=== PATIENT | male | born 1980 | race Caucasian/White ===

== ENCOUNTER 2018-08-27 11:30 | Outpatient (RCR) | payer BC ==
[2018-08-27 13:05] LABS: SEMEN VOLUME 5.8 ML (1.5-5.0)
== END 2018-11-25 | disposition home or self-care (01) ==
LOC: LAB 11:30
PROVIDERS: ATTEND Nurse Practitioner
DX: Z31.41 Encounter for fertility testing (principal)
CPT/HCPCS: 89320

== ENCOUNTER 2022-06-02 08:13 | Emergency (ER) | payer BC ==
[~2022-06-02] VITALS: Ht 177.8 cm; Wt 86.1 kg
[2022-06-02] MEDS ORDERED: ONDANSETRON 4 MG/2 ML (SDV) Z0FRAN ONE (08:26)
[2022-06-02] MEDS ORDERED: morphine INJ 10 MG/ML 1ML (SYR OR VIAL) IVP STA (08:26)
[2022-06-02] MEDS ORDERED: ONDANSETRON 4 MG/2 ML (SDV) Z0FRAN IVP ONE (08:30)
[2022-06-02] MEDS ORDERED: NS IV 1000 ML 1,000 ML IV SCH ×2 (08:30→10:30)
[2022-06-02 08:38] LABS: BASOPHILS # (AUTO) 0.1 10^3/uL (0.0-0.1); BASOPHILS % (AUTO) 1 % (0-10); EOSINOPHILS # (AUTO) 0.7 10^3/uL (0.0-0.3); EOSINOPHILS % (AUTO) 7 % (0-10); HEMATOCRIT 42 % (40-54); HEMOGLOBIN 15.1 g/dL (13.3-17.7); LYMPHOCYTES # (AUTO) 3.3 10^3/uL (1.0-4.0); LYMPHOCYTES % (AUTO) 34 % (12-44); MEAN CORPUSCULAR HEMOGLOBIN 31 pg (25-34); MEAN CORPUSCULAR HGB CONC 36 g/dL (32-36); MEAN CORPUSCULAR VOLUME 86 fL (80-99); MEAN PLATELET VOLUME 10.9 fL (9.0-12.2); MONOCYTES # (AUTO) 0.6 10^3/uL (0.0-1.0); MONOCYTES % (AUTO) 6 % (0-12); NEUTROPHILS # (AUTO) 5.1 10^3/uL (1.8-7.8); NEUTROPHILS % (AUTO) 52 % (42-75); PLATELET COUNT 293 10^3/uL (130-400); WHITE BLOOD COUNT 9.7 10^3/uL (4.3-11.0)
--- NOTE | 2022-06-02 08:44 | ED Abdominal Pain ---
General Chief Complaint: - Reproductive Stated Complaint: RIGHT SIDE ABD/TESTICLE Source of Information: Patient Exam Limitations: No Limitations History of Present Illness Date Seen by Provider: Jun 02, 2022 Time Seen by Provider: 08:28 Initial Comments Patient is a 42yo male who presents to the ER with a complaint of right sided a bdominal pain radiating into the groin. Onset early this morning. on arrival N/V. no issues with urination - hematuria or dysuria. Last bowel movement was yesterday and normal - nonblack nonbloody. Hes never had pain like this before. No prior abdominal surgeries. no history of kidney stone. He does have testicle pain - no trauma. He has take ibuprofen without relief. No fevers, chills or URI sx. No Covid concerns. Nothing makes the pain any better or worse. He did have a little blood in his urine 2 weeks ago but no pain. All other ROS reviwewd and negative except as stated. Timing/Duration: 1-3 Hours Severity/Quality: Severe Location: Flank Radiation: No Radiation, Groin Activities at Onset: Other (dove hunting this morning) Associated Symptoms: Nausea/Vomiting Allergies and Home Medications Allergies Coded Allergies: codeine (Verified Allergy, Unknown, 06/02/22) Patient Home Medication List Home Medication List Reviewed: Yes Ondansetron (Ondansetron Odt) 4 Mg Tab.rapdis, 4 MG PO Q8H PRN for nausea Prescribed by: MARTINE KIM on 06/02/22 1121 Oxycodone HCl/Acetaminophen (Percocet 7.5-325 mg Tablet) 1 Each Tablet, 1 TAB PO Q6H PRN for PAIN-MODERATE Prescribed by: MARTINE KIM on 06/02/22 112 Tamsulosin HCl (Flomax) 0.4 Mg Cap, 0.4 MG PO DAILY Prescribed by: MARTINE KIM on 06/02/22 1121 Review of Systems Review of Systems Constitutional: see HPI EENTM: No Symptoms Reported Respiratory: No Symptoms Reported Cardiovascular: No Symptoms Reported Gastrointestinal: Abdominal Pain Genitourinary: Other (groin pain) Musculoskeletal: no symptoms reported Skin: no symptoms reported All Other Systems Reviewed Negative Unless Noted: Yes Past Rhndpyg-Oeachj-Bvaaxn Hx Past Medical History Reproductive Disorders: No Physical Exam Vital Signs Vital Signs - First Documented 06/02/22 08:28 Temp 35.2 Pulse 71 Resp 18 B/P (MAP) 118/82 (94) Pulse Ox 100 O2 Delivery Room Air Capillary Refill : Height/Weight/BMI Height: '" Weight: lbs. oz. kg; BMI Method: General Appearance: WD/WN, mild distress Neck: normal inspection Respiratory: lungs clear, normal breath sounds, no respiratory distress, no accessory muscle use Cardiovascular: regular rate, rhythm Gastrointestinal: soft, tenderness (mild RLQ without rebound; no involuntary guarding) Genital/Rectal: normal genital exam, other (no testicular tenderness or swelling; ) Extremities: normal range of motion, normal inspection Back: CVA tenderness (R) (mild) Male: normal genitalia Neurologic/Psychiatric: alert, normal mood/affect, oriented x 3 Skin: normal color, diaphoresis Progress/Results/Core Measures Results/Orders Lab Results Laboratory Tests Test 06/02/22 08:28 06/02/22 10:20 Range/Units White Blood Count 9.7 4.3-11.0 10^3/uL Red Blood Count 4.85 4.30-5.52 10^6/uL Hemoglobin 15.1 13.3-17.7 g/dL Hematocrit 42 40-54 % Mean Corpuscular Volume 86 80-99 fL Mean Corpuscular Hemoglobin 31 25-34 pg Mean Corpuscular Hemoglobin Concent 36 32-36 g/dL Red Cell Distribution Width 11.8 10.0-14.5 % Platelet Count 293 130-400 10^3/uL Mean Platelet Volume 10.9 9.0-12.2 fL Immature Granulocyte % (Auto) 0 % Neutrophils (%) (Auto) 52 42-75 % Lymphocytes (%) (Auto) 34 12-44 % Monocytes (%) (Auto) 6 0-12 % Eosinophils (%) (Auto) 7 0-10 % Basophils (%) (Auto) 1 0-10 % Neutrophils # (Auto) 5.1 1.8-7.8 10^3/uL Lymphocytes # (Auto) 3.3 1.0-4.0 10^3/uL Monocytes # (Auto) 0.6 0.0-1.0 10^3/uL Eosinophils # (Auto) 0.7 H 0.0-0.3 10^3/uL Basophils # (Auto) 0.1 0.0-0.1 10^3/uL Immature Granulocyte # (Auto) 0.0 0.0-0.1 10^3/uL Sodium Level 141 135-145 MMOL/L Potassium Level 3.3 L 3.6-5.0 MMOL/L Chloride Level 105 98-107 MMOL/L Carbon Dioxide Level 19 L 21-32 MMOL/L Anion Gap 17 H 5-14 MMOL/L Blood Urea Nitrogen 15 7-18 MG/DL Creatinine 1.53 H 0.60-1.30 MG/DL Estimat Glomerular Filtration Rate 58 BUN/Creatinine Ratio 10 Glucose Level 160 H 70-105 MG/DL Calcium Level 9.8 8.5-10.1 MG/DL Urine Color YELLOW Urine Clarity SL CLOUDY Urine pH 6.0 5-9 Urine Specific Stitzer 1.025 H 1.016-1.022 Urine Protein 2+ H NEGATIVE Urine Glucose (UA) NEGATIVE NEGATIVE Urine Ketones 1+ H NEGATIVE Urine Nitrite NEGATIVE NEGATIVE Urine Bilirubin NEGATIVE NEGATIVE Urine Urobilinogen 0.2 < = 1.0 MG/DL Urine Leukocyte Esterase NEGATIVE NEGATIVE Urine RBC (Auto) 3+ H NEGATIVE Urine RBC 50-100 H /HPF Urine WBC NONE /HPF Urine Squamous Epithelial Cells NONE /HPF Urine Crystals NONE /LPF Urine Bacteria NEGATIVE /HPF Urine Casts NONE /LPF Urine Mucus NEGATIVE /LPF Urine Culture Indicated NO My Orders Orders - MARTINE KIM MD Ed Iv/Invasive Line Start (06/02/22 08:26) Cbc With Automated Diff (06/02/22 08:26) Basic Metabolic Panel (06/02/22 08:26) Ua Culture If Indicated (06/02/22 08:26) Ns Iv 1000 Ml (Sodium Chloride 0.9%) (06/02/22 08:30) Ondansetron Injection (Zofran Injectio (06/02/22 08:30) Morphine Injection (Morphine Injection (06/02/22 08:26) Ondansetron Injection (Zofran Injectio (06/02/22 08:26) Abdomen/Kub 1view (06/02/22 08:41) Ct Abd/Pelvis Wo(Kidney Stone) (06/02/22 08:41) Ketorolac Injection (Toradol Injection) (06/02/22 08:45) Ns Iv 1000 Ml (Sodium Chloride 0.9%) (06/02/22 10:30) Ns Iv 1000 Ml (Sodium Chloride 0.9%) (06/02/22 10:23) Oxycodone/Apap 7.5/325mg Tab (Percocet (06/02/22 11:30) Medications Given in ED Vital Signs/I&O 06/02/22 06/02/22 08:28 12:00 Temp 35.2 Pulse 71 69 Resp 18 18 B/P (MAP) 118/82 (94) 117/77 Pulse Ox 100 95 O2 Delivery Room Air Room Air Progress Progress Note : Time: 11:17 Progress Note still pain controlled. No nausea. pain occasionally comes in short "bursts". VSS. 8mm stone mid right ureter. Mild hydronephrosis. Recc flomax, pain meds. No indication for antibiotics on UA. Follow up with Dr Morgan. Liam is comfortable with plan. All questions are sought and answered. Diagnostic Imaging Diagonstic Imaging: Xray Comments [facility] [place], [place] NAME: MARIA TERESA HERNANDEZ [facility] REC#: [id number] PT STATUS: REG ER : 1980 PHYSICIAN: MARITNE KIM MD ADMIT DATE: 06/02/22/ER Signed Date of Exam:06/02/22 ABDOMEN/KUB 1VIEW EXAMINATION: Abdomen 1 view HISTORY: Right flank pain COMPARISON: 06/02/2022 FINDINGS: There is a moderate amount of gas and stool throughout the colon. Nonobstructive bowel gas pattern. A 0.8 cm calculus within the mid right abdomen within the expected location of the right ureter. The lung bases are clear. The osseous structures are intact. IMPRESSION: A 0.8 cm likely right mid ureteral calculus. Dictated by: Dictated on workstation # [id number] Dict: 06/02/22930 Trans: 06/02/22951 [facility] [id number] Interpreted by: RAMSES CAMEJO DO Electronically signed by: RAMSES CAMEJO DO 06/02/2252 Diagonstic Imaging: CT Comments [facility] [place] [place] NAME: MARIA TERESA HERNANDEZ [facility] REC#: [id number] PT STATUS: REG ER : 1980 PHYSICIAN: MARTINE KIM MD ADMIT DATE: 06/02/22/ER Signed Date of Exam:06/02/22 CT ABD/PELVIS WO(KIDNEY STONE) EXAMINATION: CT abdomen and pelvis without contrast. TECHNIQUE: Multiple contiguous axial images were obtained through the abdomen and pelvis without the use of intravenous contrast. All CT scans use one or more of the following dose optimizing techniques: automated exposure control, MA and/or KvP adjustment based on patient size and exam type or iterative reconstruction. HISTORY: Right-sided flank pain COMPARISON: None available. FINDINGS: Lung bases: The lung bases are clear. Solid organs: The liver is normal. The gallbladder is normal. There is no biliary ductal dilation. Pancreas is normal. Spleen is normal. Adrenal glands are normal. There is mild right hydronephrosis. There is a 0.8 cm calculus within the mid right ureter. There is a left renal cyst which requires no follow-up. Bowel: The stomach and small bowel are normal without obstruction. The colon and appendix are normal. Peritoneum: There is no intraperitoneal free fluid or free air. No suspicious lymphadenopathy. Vasculature: Normal without aneurysm. Musculoskeletal: No suspicious osseous lesion or compression fracture. Pelvis: The prostate gland is normal. The urinary bladder is normal. IMPRESSION: 1. A 0.8 cm calculus within the mid right ureter resulting in mild right hydronephrosis. Dictated by: Dictated on workstation # [id number] Dict: 06/02/22928 Trans: 06/02/22951 [facility] [id number] Interpreted by: RAMSES CAMEJO DO Electronically signed by: RAMSES CAMEJO DO 06/02/22 0952 Departure Impression Primary Impression: Ureteral stone Disposition: 01 HOME, SELF-CARE Condition: Improved Departure-Patient Inst. Decision time for Depature: 11:19 Referrals: SHAKIRA GILLIAM MD (PCP/Family) Primary Care Physician FAB MORGAN MD Add. Discharge Instructions: drink plenty of fluids to stay well hydrated. Flomax 0.4mg every night to help increase urinary flow. Percocet, 1 tablet with an extra strength tylenol every 6 hours as needed for pain. Take a stool softener daily. Nausea medications every 8 hours as needed. Please call Dr Morgan's office Saturday morning for a follow up appointment this week. Come back to the Emergency Department for re-evaluation if you have pain not controlled by home pain meds or fever. Scripts Ondansetron (Ondansetron Odt) 4 Mg Tab.rapdis 4 MG PO Q8H PRN for nausea, #20 TAB Prov: MARTINE KIM MD 06/02/22 Tamsulosin HCl (Flomax) 0.4 Mg Cap 0.4 MG PO DAILY for 14 Days, #14 CAP Prov: MARTINE KIM MD 06/02/22 Oxycodone HCl/Acetaminophen (Percocet 7.5-325 mg Tablet) 1 Each Tablet 1 TAB PO Q6H PRN for PAIN-MODERATE MDD 4 TABS, #20 TAB Prov: MARTINE KIM MD 06/02/22 Copy Copies To 1: SHAKIRA GILLIAM MD Copies To 2: FAB MORGAN MD, KATHRYN M MD Jun 02, 2022 08:44
[2022-06-02] MEDS ORDERED: KETOROLAC 30 MG/ML VIAL IVP ONE (08:45)
[2022-06-02 08:57] LABS: POTASSIUM 3.3 MMOL/L (3.6-5.0)
[2022-06-02 08:58] LABS: CALCIUM 9.8 MG/DL (8.5-10.1)
[2022-06-02 09:02] LABS: CREATININE SERUM 1.53 MG/DL (0.60-1.30)
--- NOTE | 2022-06-02 09:33 | Diagnostic Imaging Report ---
EXAMINATION: CT abdomen and pelvis without contrast. TECHNIQUE: Multiple contiguous axial images were obtained through the abdomen and pelvis without the use of intravenous contrast. All CT scans use one or more of the following dose optimizing techniques: automated exposure control, MA and/or KvP adjustment based on patient size and exam type or iterative reconstruction. HISTORY: Right-sided flank pain COMPARISON: None available. FINDINGS: Lung bases: The lung bases are clear. Solid organs: The liver is normal. The gallbladder is normal. There is no biliary ductal dilation. Pancreas is normal. Spleen is normal. Adrenal glands are normal. There is mild right hydronephrosis. There is a 0.8 cm calculus within the mid right ureter. There is a left renal cyst which requires no follow-up. Bowel: The stomach and small bowel are normal without obstruction. The colon and appendix are normal. Peritoneum: There is no intraperitoneal free fluid or free air. No suspicious lymphadenopathy. Vasculature: Normal without aneurysm. Musculoskeletal: No suspicious osseous lesion or compression fracture. Pelvis: The prostate gland is normal. The urinary bladder is normal. IMPRESSION: 1. A 0.8 cm calculus within the mid right ureter resulting in mild right hydronephrosis. Dictated by: Dictated on workstation # [id number]
--- NOTE | 2022-06-02 09:33 | Diagnostic Imaging Report ---
EXAMINATION: Abdomen 1 view HISTORY: Right flank pain COMPARISON: 06/02/2022 FINDINGS: There is a moderate amount of gas and stool throughout the colon. Nonobstructive bowel gas pattern. A 0.8 cm calculus within the mid right abdomen within the expected location of the right ureter. The lung bases are clear. The osseous structures are intact. IMPRESSION: A 0.8 cm likely right mid ureteral calculus. Dictated by: Dictated on workstation # [id number]
[2022-06-02] MEDS ORDERED: NS IV 1000 ML 1,000 ML ONE (10:23)
[2022-06-02 10:49] LABS: BILIRUBIN,URINE NEGATIVE (NEGATIVE); CLARITY,URINE SL CLOUDY; COLOR,URINE YELLOW; GLUCOSE, URINE (UA) NEGATIVE (NEGATIVE); KETONES,URINE 1+ (NEGATIVE); LEUKOCYTE ESTERASE ,URINE NEGATIVE (NEGATIVE); NITRITE,URINE NEGATIVE (NEGATIVE); PROTEIN,URINE 2+ (NEGATIVE)
[2022-06-02 11:09] LABS: BACTERIA,URINE NEGATIVE /HPF; RBC,URINE 50-100 /HPF
[2022-06-02] MEDS ORDERED: ONDA4TAB11 PO (11:21)
[2022-06-02] MEDS ORDERED: OXYC1TAB16 PO (11:21)
[2022-06-02] MEDS ORDERED: TMSL.4C PO (11:21)
[2022-06-02] MEDS ORDERED: oxyCODONE/APAP 7.5-325 MG (PERCOCET 7.5) TABLET PO ONE (11:30)
[2022-06-02 12:00] VITALS: BP 117/77
== END 2022-06-02 12:05 | disposition home or self-care (01) ==
LOC: EDUNIT# 08:13 → ER 08:16
DX: N13.2 Hydronephrosis with renal and ureteral calculous obstruction (principal); Z88.5 Allergy status to narcotic agent
CPT/HCPCS: 36415; 74018; 74176; 80048; 81000; 85025

== ENCOUNTER → 2022-06-06 | Outpatient (CLI) | payer BC ==
[~2022-06-06] MED LIST: ONDA4TAB11 PO; OXYC1TAB16 PO; TMSL.4C PO
--- NOTE | 2022-06-06 16:35 | Diagnostic Imaging Report ---
EXAMINATION: Abdomen, one view. HISTORY: Right ureteral stone. COMPARISON: 06/02/2022. FINDINGS: There is a moderate amount of gas and stool throughout the colon. Nonobstructive bowel gas pattern. Stable 0.8 cm radiopacity overlying the right paraspinous abdomen likely within the right ureter. This projects over the L3 right transverse process which is slightly above where it was seen on 06/02/2022. The osseous structures are intact. IMPRESSION: A 0.8 cm likely right ureteral calculus which projects slightly higher than on the previous exam at the level of L3. Dictated by: Dictated on workstation # [id number]
== END ==
LOC: RAD 15:34
PROVIDERS: ATTEND Urology
DX: N20.1 Calculus of ureter (principal)
CPT/HCPCS: 74018

== ENCOUNTER 2022-06-11 05:28 | Outpatient (CLI) | payer BC ==
[2022-06-12] MEDS ORDERED: NITR-65 PO (09:00)
[2022-06-12] MEDS ORDERED: TMSL.4C PO (09:00)
[2022-06-12] MEDS ORDERED: KETO10TA PO (09:00)
== END 2022-06-18 09:18 | disposition home or self-care (01) ==
LOC: PREOP 05:28
PROVIDERS: ATTEND Urology
DX: Z01.818 Encounter for other preprocedural examination (principal)

== ENCOUNTER 2022-06-12 06:37 | Day surgery (SDC) | payer BC ==
[2022-06-12] VITALS (11 sets, daily range): BP systolic 108–133; BP diastolic 60–84
[~2022-06-12] VITALS: Ht 177.8 cm; Wt 86.2 kg
[2022-06-12] MEDS ORDERED: cefTRIAXone 1 GM PRE-MIX 50 ML IV ONE (07:00)
[2022-06-12] MEDS ORDERED: LIDOCAINE PF 2% 5 ML (XYLOCAINE) VIAL ONE (07:13)
[2022-06-12] MEDS ORDERED: proPOfol 200 MG/20 ML (DIPRIVAN) VIAL IV ONE (07:13)
[2022-06-12] MEDS ORDERED: fentaNYL INJ 100 MCG/2 ML AMP ONE (07:13)
[2022-06-12] MEDS ORDERED: ONDANSETRON 4 MG/2 ML (SDV) Z0FRAN ONE (07:13)
[2022-06-12] MEDS ORDERED: MIDAZOLAM 2 MG/2 ML (VERSED) VIAL ONE (07:13)
--- NOTE | 2022-06-12 07:23 | Progress Note-Pre Operative ---
Pre-Operative Progress Note Date of Available H&P: Jun 12, 2022 Date H&P Reviewed: Jun 12, 2022 Time H&P Reviewed: 07:23 Changes from last HP NONE Pre-Operative Diagnosis: RT PROXIMAL URETERAL STONE FAB MORGAN MD Jun 12, 2022 07:23
--- NOTE | 2022-06-12 07:23 | Diagnostic Imaging Report ---
EXAMINATION: Abdominal radiographs, single view, 2 images. DATE: June 12, 2022. CLINICAL INDICATION: 42-year-old male, preoperative exam. History of right-sided renal stone. COMPARISON: Abdominal radiograph June 06, 2022. COMMENTS: There is a 7 mm calcification at the level of the right L3 transverse process unchanged since the comparison radiograph which may potentially reflect a ureteral stone. There are pelvic calcifications which are unchanged. There are no abnormally distended gas-filled segments of bowel. IMPRESSION: 7 mm probable stone in the right ureter unchanged in position since June 06, 2022 at the level of the right L3 transverse process. Dictated by: Dictated on workstation # [id number]
[2022-06-12] MEDS: LACTATED RINGERS 1,000 ML IV PRN ×2 (07:26→08:55)
--- NOTE | 2022-06-12 07:27 | Progress Note-Post Operative ---
Post-Operative Progess Note Surgeon (s)/Wine Consultant (s) Surgeon FAB MORGAN MD Wine Consultant: NONE Pre-Operative Diagnosis RT PROXIMAL URETERAL STONE Post-Operative Diagnosis SAME Procedure & Operative Findings Date of Procedure 06/12/22 Procedure Performed/Findings CYSTOSCOPY WITH RT URETERAL STONE MANIPULATION AND STENT Anesthesia Type GENERAL Estimated Blood Loss Estimated blood loss (mL): NONE Specimens/Packing Specimens Removed NONE Packing: NONE FAB MORGAN MD Jun 12, 2022 07:27
--- NOTE | 2022-06-12 07:29 | Discharge Inst-Urology ---
Discharge Inst-Urology Reconcile Patient Problems Problems Reviewed?: Yes Final Diagnosis RT PROXIMAL URETERAL STONE Patient Instructions/Follow Up Plan/Assessment/Instructions Please make appointment to been seen in office next Saturday, KUB prior to it. KUB on way home Increase oral fluids for 48 hours and then as needed. Diet and Activity as tolerated. If questions or concerns contact your physician Or seek help at emergency department. FAB MORGAN MD Jun 12, 2022 07:28
[2022-06-12] MEDS ORDERED: NITR-65 PO (09:00)
[2022-06-12] MEDS ORDERED: PROMETHAZINE INJ 25 MG/ML (PHENERGAN) AMP IVP ONE (09:00)
[2022-06-12] MEDS ORDERED: ONDANSETRON 4 MG/2 ML (SDV) Z0FRAN IVP PRN (09:00)
[2022-06-12] MEDS ORDERED: morphine INJ 10 MG/ML 1ML (SYR OR VIAL) IVP ONE (09:00)
[2022-06-12] MEDS ORDERED: MEPERIDINE (DEMEROL) INJ 50 MG/ML IVP ONE (09:00)
[2022-06-12] MEDS ORDERED: TMSL.4C PO (09:00)
[2022-06-12] MEDS ORDERED: KETO10TA PO (09:00)
--- NOTE | 2022-06-12 09:00 | Anesthesia-General Post-Op ---
General Patient Condition Mental Status/LOC: Same as Preop Cardiovascular: Satisfactory Nausea/Vomiting: Absent Respiratory: Satisfactory Pain: Controlled Complications: Absent Post Op Complications Complications None Follow Up Care/Instructions Patient Instructions None needed. Anesthesia/Patient Condition Patient Condition Patient is doing well, no complaints, stable vital signs, no apparent adverse anesthesia problems. No complications reported per nursing. ASHTYN PASTRANA CRNA Jun 12, 2022 08:59
[2022-06-12] MEDS ORDERED: KETOROLAC 30 MG/ML VIAL ONE (10:19)
[2022-06-12] MEDS ORDERED: KETOROLAC 30 MG/ML VIAL IVP ONE ×2 (10:30)
--- NOTE | 2022-06-12 11:21 | Diagnostic Imaging Report ---
CLINICAL INDICATION: Stent placement. EXAM: KUB x-ray. COMPARISON: X-ray of the abdomen dated 06/12/2022. FINDINGS AND IMPRESSION: 1: The previously seen suspected stone on the prior study overlying the right side of the L3 transverse process is not seen on this exam. 2: There is interval placement of a right double-J ureteral stent. There are no calcifications along the length of the stent. 3: Suspected phleboliths are seen in the pelvis. 4: A nonobstructed bowel gas pattern is seen. Dictated by: Dictated on workstation # [id number]
--- NOTE | 2022-06-12 13:39 | OPERATIVE REPORT ---
DATE OF SERVICE: 06/12/2022 PREOPERATIVE DIAGNOSIS: Right proximal ureteral stone. POSTOPERATIVE DIAGNOSIS: Right proximal ureteral stone. OPERATION PERFORMED: Cystoscopy, right ureteral stone manipulation, and insertion of right ureteral stent. SURGEON: Boston Morgan MD ANESTHESIA: General. COMPLICATIONS: None. DESCRIPTION OF PROCEDURE: Under satisfactory general anesthesia, the patient in lithotomy position, genitalia were prepped and draped in the usual sterile fashion. Cystoscope was introduced under vision. The anterior urethra was normal. The prostate was nonobstructing. Bladder neck was open. Bladder was normal except for a sluggish efflux on the right side. Using the foroblique lens, I passed a 6-Icelandic ureteral catheter all the way up to the stone guided fluoroscopically, I was able to push and flush the stone back into the kidney, removed catheter, inserted a 6-Icelandic 26 cm double-J stent all the way up to the right renal pelvis, guided again fluoroscopically. The guidewire was removed, and the stent was seen jetting nicely proximally fluoroscopically and distally endoscopically. Bladder was evacuated and the cystoscope was removed. The patient tolerated the procedure and anesthesia well and was sent to recovery room in stable condition. PLAN: We will see him back in the office next Saturday to set him up for a right ESWL as previously explained to him and instructions were given to his . Job ID: [id number] DocumentID: [id number] Dictated Date: 06/12/2022 08:50:38 Electric Truck Operator Date: 06/12/2022 13:38:51 Dictated By: BOSTON MORGAN MD
== END 2022-06-12 10:55 | disposition home or self-care (01) ==
LOC: SDC 06:37
PROVIDERS: ATTEND Urology
DX: N20.1 Calculus of ureter (principal)
CPT/HCPCS: 52332; 74018; 76000; 87081; C2625

== ENCOUNTER → 2022-06-13 | Outpatient (CLI) | payer BC ==
[~2022-06-13] MED LIST changes: +KETO10TA PO; +NITR-65 PO
--- NOTE | 2022-06-13 14:45 | Diagnostic Imaging Report ---
INDICATION: History of ureteral calculi. COMPARISON: 06/12/2022 FINDINGS: Single frontal radiograph view the abdomen was obtained and again demonstrates indwelling right-sided double-J ureteral stent. 8 mm calculus is identified inferior to the cephalad pigtail of the stent and may be on the basis of retrograde displacement of previously described ureteral calculus. Pelvic phleboliths are again noted. No other unexpected extraosseous calcifications or radiopaque foreign bodies are seen. Small bowel loops are nondistended. There is no large collection of free intraperitoneal air. IMPRESSION: 1. Possible retrograde migration/displacement of previously described ureteral calculus, as it now appears to project over the inferior pole the right renal shadow. 2. Nonobstructive small bowel gas pattern Dictated by: Dictated on workstation # [id number]
== END ==
LOC: RAD 14:07
PROVIDERS: ATTEND Urology
DX: Z87.442 Personal history of urinary calculi (principal); Z96.0 Presence of urogenital implants
CPT/HCPCS: 74018

== ENCOUNTER 2022-06-18 11:32 | Outpatient (CLI) | payer BC ==
[~2022-06-18] VITALS: Ht 177.8 cm; Wt 86.2 kg
== END 2022-06-18 11:36 ==
LOC: PREOP 11:32
PROVIDERS: ATTEND Urology
DX: Z01.818 Encounter for other preprocedural examination (principal)

== ENCOUNTER 2022-06-19 07:09 | Day surgery (SDC) | payer BC ==
[2022-06-19] VITALS (10 sets, daily range): BP systolic 110–138; BP diastolic 67–83
[~2022-06-19] VITALS: Ht 177 cm; Wt 86.2 kg
[2022-06-19] MEDS ORDERED: LACTATED RINGERS 1,000 ML IV PRN (07:15)
[2022-06-19] MEDS ORDERED: cefTRIAXone 1 GM PRE-MIX 50 ML IV ONE (07:30)
--- NOTE | 2022-06-19 07:30 | Progress Note-Pre Operative ---
Pre-Operative Progress Note Date of Available H&P: Jun 19, 2022 Date H&P Reviewed: Jun 19, 2022 Time H&P Reviewed: 07:30 Changes from last HP NONE Pre-Operative Diagnosis: RT PROXIMAL URETERAL STONE FAB MORGAN MD Jun 19, 2022 07:30
--- NOTE | 2022-06-19 07:31 | Progress Note-Post Operative ---
Post-Operative Progess Note Surgeon (s)/Production Editor (s) Surgeon FAB MORGAN MD Production Editor: NONE Pre-Operative Diagnosis RT PROXIMAL URETERAL STONE Post-Operative Diagnosis SAME Procedure & Operative Findings Date of Procedure 06/19/22 Procedure Performed/Findings RT ESWL Anesthesia Type GENERAL Estimated Blood Loss Estimated blood loss (mL): NONE Specimens/Packing Specimens Removed NONE Packing: NONE FAB MORGAN MD Jun 19, 2022 07:31
--- NOTE | 2022-06-19 07:33 | Discharge Inst-Urology ---
Discharge Inst-Urology Reconcile Patient Problems Problems Reviewed?: Yes Final Diagnosis RT PROXIMAL URETERAL STONE Patient Instructions/Follow Up Plan/Assessment/Instructions Please make appointment to been seen in office next week, NOT SATURDAY, FOR CYSTO AND DC STENT. KUB prior to it KUB on way home Post ESWL instructions Increase oral fluids for 48 hours and then as needed. Diet and Activity as tolerated. If questions or concerns contact your physician Or seek help at emergency department. FAB MORGAN MD Jun 19, 2022 07:32
[2022-06-19] MEDS ORDERED: LIDOCAINE PF 2% 5 ML (XYLOCAINE) VIAL ONE (07:40)
[2022-06-19] MEDS ORDERED: proPOfol 200 MG/20 ML (DIPRIVAN) VIAL IV ONE (07:40)
[2022-06-19] MEDS ORDERED: SEVOFLURANE (ULTANE) 15 ML INHAL SOLN ONE (07:40)
[2022-06-19] MEDS ORDERED: fentaNYL INJ 100 MCG/2 ML AMP ONE (07:40)
[2022-06-19] MEDS ORDERED: MIDAZOLAM 2 MG/2 ML (VERSED) VIAL ONE (07:40)
[2022-06-19] MEDS ORDERED: KETOROLAC 30 MG/ML VIAL ONE (07:40)
[2022-06-19] MEDS ORDERED: FUROSEMIDE 40 MG/4 ML INJ (LASIX) ONE (07:40)
[2022-06-19] MEDS ORDERED: ONDANSETRON 4 MG/2 ML (SDV) Z0FRAN ONE (07:40)
--- NOTE | 2022-06-19 08:44 | Diagnostic Imaging Report ---
REASON FOR EXAM: Kidney stone. Preprocedure. COMPARISON: 06/13/2022. TECHNIQUE: 2 views of the abdomen FINDINGS: There has been interval migration of a calculus within the right kidney which now appears to be within the proximal right ureter. The right ureteral stent is in place. Phleboliths are again noted in the pelvis. No evidence of bowel obstruction. No free air. IMPRESSION: Interval migration of a calculus previously visualized overlying the right kidney which now appears to be overlying the proximal right ureter. Right-sided ureteral stent is in place. Dictated by: Dictated on workstation # [id number]
--- NOTE | 2022-06-19 09:21 | Anesthesia-General Post-Op ---
General Patient Condition Mental Status/LOC: Same as Preop Cardiovascular: Satisfactory Nausea/Vomiting: Absent Respiratory: Satisfactory Pain: Controlled Complications: Absent Post Op Complications Complications None Follow Up Care/Instructions Patient Instructions None needed. Anesthesia/Patient Condition Patient Condition Patient is doing well, no complaints, stable vital signs, no apparent adverse anesthesia problems. No complications reported per nursing. ANNIE CUELLAR CRNA Jun 19, 2022 09:21
[2022-06-19] MEDS ORDERED: fentaNYL INJ 100 MCG/2 ML AMP IVP ONE (09:30)
[2022-06-19] MEDS ORDERED: ONDANSETRON 4 MG/2 ML (SDV) Z0FRAN IVP PRN (09:30)
--- NOTE | 2022-06-19 12:57 | OPERATIVE REPORT ---
DATE OF SERVICE: 06/19/2022 PREOPERATIVE DIAGNOSIS: Right proximal ureteral stone. POSTOPERATIVE DIAGNOSIS: Right proximal ureteral stone. OPERATION PERFORMED: Right ESWL. SURGEON: Boston Morgan MD ANESTHESIA: General. COMPLICATIONS: None. DESCRIPTION OF PROCEDURE: Under satisfactory general anesthesia, the patient in supine position on the ESWL table, the right proximal stone was localized. Shocks were delivered at kV of 6. Total of 2000 shocks completely fragmented the stone that was hardly visualized. The patient received 40 mg of Lasix and 30 mg of Toradol IV at the end of the procedure. He tolerated the procedure and anesthesia well and was sent to recovery room in stable condition. Job ID: [id number] DocumentID: [id number] Dictated Date: 06/19/2022 08:58:48 Music Publisher Date: 06/19/2022 12:57:14 Dictated By: BOSTON MORGAN MD
--- NOTE | 2022-06-19 15:26 | Diagnostic Imaging Report ---
INDICATION: Renal calculus. Comparison with 06/19/2022. FINDINGS: Double-J catheter remains present on the right, unchanged in position. Proximal right ureteral stone remains present. No additional calculi are seen. IMPRESSION: Double-J stent remaining in good position with 5 mm stone noted proximally in the ureter. Dictated by: Dictated on workstation # [id number]
== END 2022-06-19 11:01 | disposition home or self-care (01) ==
LOC: SDC 07:09
PROVIDERS: ATTEND Urology
DX: N20.1 Calculus of ureter (principal)
CPT/HCPCS: 74018; 87081

== ENCOUNTER → 2022-06-26 | Outpatient (CLI) | payer BC ==
--- NOTE | 2022-06-26 19:46 | Diagnostic Imaging Report ---
INDICATION: Urinary tract calculi. AP view of the pelvis is obtained with comparison made to study of 06/19/2022. FINDINGS: Right double-J nephroureteral stent remains in place. Calcification that was seen previously along the proximal aspect of the stent is not visualized on the current study. Faint calcifications project over the lower pole of the right kidney. There are calcified phleboliths in the pelvis. Otherwise, no acute abnormality or adverse change is seen. IMPRESSION: No definite stone is seen along the right ureteric stent. There may be small calcifications within the lower pole of the right kidney. Dictated by: Dictated on workstation # [id number]
== END ==
LOC: RAD 15:10
PROVIDERS: ATTEND Urology
DX: N20.1 Calculus of ureter (principal); Z96.0 Presence of urogenital implants
CPT/HCPCS: 74018